=== PATIENT | female | born 1965 | race Two or more races ===

== ENCOUNTER → 2017-06-24 | Outpatient (CLI) | payer OTHER ==
--- NOTE | 2017-06-27 09:09 | RADIOLOGY IMAGING REPORT ---
FACILITY: [facility] PATIENT NAME: ADDISON PALMA : [id number] MR: [id number] V: [id number] EXAM DATE: [id number] ORDERING PHYSICIAN: AVERY SPRAGUE TECHNOLOGIST: Terra Ferreira PROCEDURE:BILATERAL DIGITAL SCREENING MAMMOGRAM WITH CAD ASSISTED INTERPRETATION & 3D TOMOSYNTHESIS COMPARISON:Prior mammograms 05/06/15, 03/06/15. INDICATIONS:SCREENING FINDINGS: Small amount of fibroglandular tissue is seen throughout the breasts. The parenchymal pattern has remained stable allowing for difference in mammographic technique & patient positioning. There is no evidence of malignant appearing mass, malignant appearing calcifications or other secondary sign of malignancy in either breast. DIAGNOSTIC CATEGORY 1--NEGATIVE. RECOMMENDATIONS: ROUTINE MAMMOGRAM AND CLINICAL EVALUATION. IMPRESSION: BIRADS 1: Negative No significant abnormality is seen. Dictated by: Lizz Daniels M.D. on 06/24/2017 at 15:52 Transcribed by: RASHI on 06/24/2017 at 16:05 Approved by: Lizz Daniels M.D. on 06/27/2017 at 9:08 [facility]
== END ==
LOC: MAMO 04:53
PROVIDERS: ATTEND Family Medicine
DX: Z12.31 Encounter for screening mammogram for malignant neoplasm of breast (principal)
CPT/HCPCS: 77063; 77067

== ENCOUNTER → 2018-08-03 | Outpatient (CLI) | payer OTHER ==
--- NOTE | 2018-08-03 16:08 | RADIOLOGY IMAGING REPORT ---
FACILITY: [facility] [place] PATIENT NAME: ADDISON PALMA : [id number] MR: [id number] V: [id number] EXAM DATE: [id number] ORDERING PHYSICIAN: AVERY SPRAGUE TECHNOLOGIST: Love Tobias PROCEDURE: BILATERAL DIGITAL SCREENING MAMMOGRAM WITH CAD ASSISTED INTERPRETATION & 3D TOMOSYNTHESIS REASON FOR STUDY: Screening. FAMILY HISTORY OF BREAST CANCER: None. COMPARISON: Prior mammograms 03/06/2015, 06/24/2017. VIEWS OBTAINED: 2D & 3D full field CC & MLO. BREAST DENSITY: Scattered areas of fibroglandular tissue. MAMMOGRAM FINDINGS: Stable appearing breast parenchyma with no mass lesions, architectural distortion, or any clustering of suspicious microcalcifications. IMPRESSION: BIRADS 1: Negative. DIAGNOSTIC CATEGORY 1--NEGATIVE. RECOMMENDATIONS: ROUTINE MAMMOGRAM AND CLINICAL EVALUATION IN 1 YEAR.. Dictated by: David Larson M.D. on 08/03/2018 at 12:27 Transcribed by: RASHI on 08/03/2018 at 14:25 Approved by: David Larson M.D. on 08/03/2018 at 16:07 [facility]
== END ==
LOC: MAMO 01:36
PROVIDERS: ATTEND Family Medicine
DX: Z12.31 Encounter for screening mammogram for malignant neoplasm of breast (principal)
CPT/HCPCS: 77063; 77067